=== PATIENT | female | born 2000 | race Caucasian/White ===

== ENCOUNTER 2022-04-28 02:06 | Emergency (ER) | payer BC ==
[2022-04-28 03:17] LABS: CORONAVIRUS COVID-19 NAA NEGATIVE (NEGATIVE); INFLUENZA A NAA NEGATIVE (NEGATIVE); INFLUENZA B NAA NEGATIVE (NEGATIVE)
[2022-04-28] MEDS ORDERED: Dexamethasone 10 MG/ML SDV IVPUSH ONE (03:24)
== END 2022-04-28 03:36 | disposition home or self-care (01) ==
LOC: MW.ED 02:06
DX: J02.8 Acute pharyngitis due to other specified organisms (principal); Z28.310 Unvaccinated for COVID-19; Z20.822 Contact with and (suspected) exposure to COVID-19
CPT/HCPCS: 0240U; 87651; 96374; 99284; J1100; 99282

== ENCOUNTER 2023-08-23 20:09 | Inpatient (IN) | payer OTHER ==
[2023-08-23] MEDS ORDERED: Ampicillin 2 GM in Sodium Chloride 0.9% 100 ML IV ONE (20:18)
[2023-08-23] MEDS ORDERED: Tranexamic Acid IN NACL,ISO-OS 1,000 MG in Premix Bag 1 BAG IV PRN ×2 (20:18)
[2023-08-23] MEDS ORDERED: Misoprostol 25 MCG (1/4 of 100 MCG) Tab VAG PRN (20:18)
[2023-08-23] MEDS ORDERED: Methylergonovine 0.2 MG/1 ML Amp IM PRN (20:18)
[2023-08-23] MEDS ORDERED: Carboprost Tromethamine 250 MCG/1 mL Vial IM PRN (20:18)
[2023-08-23] MEDS ORDERED: Water For Irrigation,Sterile 1,000 ML Container IRR PRN (20:18)
[2023-08-23] MEDS ORDERED: Sodium Chloride 0.9% 10 ML Syringe FLUSH PRN (20:18)
[2023-08-23] MEDS ORDERED: Lidocaine 1% 50 ML MDV INJECT PRN (20:18)
[2023-08-23] MEDS ORDERED: Misoprostol 200 MCG Tab PO PRN (20:18)
[2023-08-23] MEDS ORDERED: Sodium Chloride 0.9% 2.5 ML Syringe FLUSH PRN (20:18)
[2023-08-23] MEDS ORDERED: Sodium Chloride 0.9% 20 ML SDV IV PRN (20:18)
[2023-08-23] MEDS ORDERED: Terbutaline 1 MG/ML SDV SUBCUT PRN (20:18)
[2023-08-23] MEDS ORDERED: Oxytocin/0.9 % Sodium Chloride 30 UNIT/500 ML BAG IV SCH ×2 (20:30)
[2023-08-23] MEDS ORDERED: Ampicillin 1 GM in Sodium Chloride 0.9% 50 ML IV SCH (20:30)
[2023-08-23 21:06] LABS: HEMATOCRIT 34.9 % (37.0-47.0); HEMOGLOBIN 12.6 g/dL (12.0-16.0); MEAN CORPUSCULAR HGB CONC 36.1 g/dL (32.0-36.0); MEAN CORPUSCULAR VOLUME 88.6 fL (83.0-99.0); MEAN PLATELET VOLUME 10.6 fL (9.4-12.3); PLATELET COUNT,PLT 189 K/uL (150-400); RED BLOOD CELL COUNT 3.94 M/uL (4.10-5.30); WHITE BLOOD CELL COUNT,WBC 10.58 K/uL (3.9-11.3)
[2023-08-23] MEDS: Lactated Ringers 1,000 ML IV SCH (21:15)
[2023-08-24] MEDS: Ampicillin 1 GM in Sodium Chloride 0.9% 50 ML IV SCH ×5 (01:30→17:42)
[2023-08-24] MEDS: Misoprostol 25 MCG (1/4 of 100 MCG) Tab VAG PRN ×2 (02:18→06:07)
[2023-08-24] MEDS: Nalbuphine 10 MG/0.5 ML Syringe IVPUSH PRN ×2 (04:59→07:01)
[2023-08-24] MEDS: Lactated Ringers 1,000 ML IV SCH ×4 (05:03→17:42)
[2023-08-24] MEDS: Ondansetron 4 MG/2 ML SDV IVPUSH PRN ×2 (08:44→18:16)
[2023-08-24] MEDS ORDERED: Ropivacaine HCl/PF 200 ML ONE (13:54)
[2023-08-24] MEDS ORDERED: Phenylephrine HCl 0.5 MG/5 ML AMP IVPUSH PRN (15:11)
[2023-08-24] MEDS ORDERED: ePHEDrine 50 MG/ML SDV IVPUSH PRN ×2 (15:11)
[2023-08-24] MEDS ORDERED: Ropivacaine HCl/PF 400 MG in Premix Bag 1 BAG EPIDUR SCH (15:15)
[2023-08-24] MEDS ORDERED: fentaNYL 100 MCG/2 ML SDV ONE (17:48)
[2023-08-24] MEDS ORDERED: Lidocaine 2% 5 ML SDV ONE (17:49)
[2023-08-24] MEDS ORDERED: Docusate Sodium 100 MG Cap PO PRN (22:29)
[2023-08-24] MEDS ORDERED: Lanolin 100% Cream 7 GM Tube TOP PRN (22:29)
[2023-08-24] MEDS ORDERED: Benzocaine/Menthol 20%-0.5% Spray 78 GM Cannister TOP PRN (22:29)
[2023-08-24] MEDS ORDERED: oxyCODONE 5 MG Tab PO PRN (22:29)
[2023-08-24 22:33] LABS: PH,UMBILICAL ARTERIAL 7.187 (7.18-7.38)
[2023-08-24 22:34] LABS: PH,UMBILICAL VENOUS 7.297 (7.25-7.45)
[2023-08-24] MEDS: Acetaminophen 500 MG Tab PO PRN (23:37)
[2023-08-24] MEDS: Ibuprofen 800 MG Tab PO PRN (23:38)
[2023-08-24] MEDS: Witch Hazel Medicated Pads 40/Jar TOP PRN (23:42)
[2023-08-25 05:47] LABS: HEMATOCRIT 28.4 % (37.0-47.0); HEMOGLOBIN 10.2 g/dL (12.0-16.0)
[2023-08-25] MEDS: Ibuprofen 800 MG Tab PO PRN (09:31)
[2023-08-25] MEDS: Acetaminophen 500 MG Tab PO PRN (18:54)
[2023-08-26] MEDS: Witch Hazel Medicated Pads 40/Jar TOP PRN (11:54)
== END 2023-08-26 11:47 | disposition home or self-care (01) | DRG 807 ==
LOC: MW.OBCHECK 20:09 → MW.OB 20:10 → MW.OBCHECK 20:47 → OBSVTOIN 08-24 21:24 → MW.OB 08-25 02:40
PROVIDERS: ADMIT Obstetrics & Gynecology; ATTEND Obstetrics & Gynecology
PROC: 10E0XZZ Delivery of Products of Conception, External Approach (ICD-10-PCS; principal; 2023-08-24)
PROC: 0KQM0ZZ Repair Perineum Muscle, Open Approach (ICD-10-PCS; 2023-08-24)
PROC: 3E033VJ Introduction of Other Hormone into Peripheral Vein, Percutaneous Approach (ICD-10-PCS; 2023-08-24)
PROC: 3E0R3BZ Introduction of Anesthetic Agent into Spinal Canal, Percutaneous Approach (ICD-10-PCS; 2023-08-24)
PROC: 00HU33Z Insertion of Infusion Device into Spinal Canal, Percutaneous Approach (ICD-10-PCS; 2023-08-24)
DX: O48.0 Post-term pregnancy (principal); Z37.0 Single live birth; Z3A.40 40 weeks gestation of pregnancy; O70.1 Second degree perineal laceration during delivery; O99.824 Streptococcus B carrier state complicating childbirth
CPT/HCPCS: 36415; 51702; 59025; 59409; 82803; 85014; 85018; 85027; 86592; 86850; 86900; 86901; A9270-GY; J0290; J2300; J2405; J2590; J2795; J3010; J3490; J7120

== ENCOUNTER 2025-05-23 19:55 | Emergency (ER) | payer OTHER ==
[2025-05-23 20:50] LABS: BASOPHILS ABSOLUTE AUTO 0.05 K/uL (0.00-0.20); BASOPHILS PERCENT AUTO 0.7 % (0.0-1.0); EOSINOPHILS ABSOLUTE AUTO 0.17 K/uL (0.00-0.45); EOSINOPHILS PERCENT AUTO 2.4 % (0.0-6.0); IMMATURE GRAN ABSOLUTE AUTO 0.01 K/uL (0.00-0.05); IMMATURE GRAN PERCENT AUTO 0.1 % (0.0-0.4); LYMPHOCYTES ABSOLUTE AUTO 1.93 K/uL (1.00-4.80); LYMPHOCYTES PERCENT AUTO 27.5 % (24.0-44.0); MEAN PLATELET VOLUME 9.5 fL (9.4-12.3); MONOCYTES ABSOLUTE AUTO 0.54 K/uL (0.00-0.80); MONOCYTES PERCENT AUTO 7.7 % (0.0-8.0); NEUTROPHILS ABSOLUTE AUTO 4.33 K/uL (1.80-7.70); NEUTROPHILS PERCENT AUTO 61.6 % (41.0-71.0); NRBC ABSOLUTE 0.00 K/uL (0.00-0.02); NRBC PERCENT 0.0 /100WBC (0.0-0.2); PLATELET COUNT,PLT 293 K/uL (150-400); RED BLOOD CELL COUNT 4.06 M/uL (4.10-5.30); WHITE BLOOD CELL COUNT,WBC 7.03 K/uL (3.9-11.3)
[2025-05-23 21:13] LABS: A/G RATIO 1.4 (0.9-1.6); ALANINE AMINOTRANSFERASE,ALT 12 IU/L (14-63); ASPARTATE AMNIOTRANSFERASE,AST 11 IU/L (15-37); BILIRUBIN TOTAL 0.3 mg/dL (0.2-1.0); BLOOD UREA NITROGEN,BUN 14 mg/dL (7.0-18.0); CARBON DIOXIDE,CO2 25.3 mmol/L (21.0-32.0); CHLORIDE,CL 105 mmol/L (98-107); CREATININE 0.6 mg/dL (0.6-1.0); EST CRCL DRUG DOSING (CG) 110.04 mL/min; GLUCOSE RANDOM 97 mg/dL (74-106); POTASSIUM,K 3.9 mmol/L (3.5-5.1); PROTEIN TOTAL,TP 7.2 g/dL (6.4-8.2); SODIUM,NA 140 mmol/L (136-145)
[2025-05-23 21:15] LABS: ESTIMATED GFR 129 mL/min (>60)
== END 2025-05-23 21:22 | disposition home or self-care (01) ==
LOC: MW.ED 19:55
DX: R07.9 Chest pain, unspecified (principal); Z91.018 Allergy to other foods; Z75.3 Unavailability and inaccessibility of health-care facilities
CPT/HCPCS: 36415; 80053; 84484; 85025; 93005; 99283; 99285